=== PATIENT | female | born 1990 | race Caucasian/White ===

== ENCOUNTER 2021-12-21 19:30 | Emergency (ER) | payer OTHER ==
[2021-12-21] MEDS ORDERED: DIPHTH,PERTUSS(ACELL),TET 0.5 ML DISP.SYRIN IM ONE ×2 (19:39→19:50)
[2021-12-21 19:45] VITALS: BP 127/72; PULSE 80; TEMP 98.5; BMI 33.4
== END 2021-12-21 20:09 | disposition home or self-care (01) ==
LOC: FER 19:30
PROC: 0HQGXZZ Repair Left Hand Skin, External Approach (ICD-10-PCS; principal; 2021-12-21)
PROC: 3E0234Z Introduction of Serum, Toxoid and Vaccine into Muscle, Percutaneous Approach (ICD-10-PCS; 2021-12-21)
DX: S61.412A Laceration without foreign body of left hand, initial encounter (principal); W26.0XXA Contact with knife, initial encounter
CPT/HCPCS: 12001-25; 90471; 90715; 99282-25

== ENCOUNTER 2022-08-17 00:48 | Emergency (ER) | payer OTHER ==
[2022-08-17 00:55] VITALS: BP 110/64; PULSE 95; RESP 18; TEMP 98.9; BMI 35.4
[2022-08-17] MEDS ORDERED: MAG HYDROX/AL HYDROX/SIMETH -MYLANTA- ORAL SUSPENSION PO ONE (00:56)
[2022-08-17] MEDS ORDERED: FAMOTIDINE 20 MG/50 ML IVPB 20 MG in PREMIX 50 IVPB ONE (00:56)
[2022-08-17] MEDS ORDERED: SODIUM CHLORIDE 1,000 ML IV ONE (00:56)
[2022-08-17] MEDS ORDERED: ACETAMINOPHEN 1000 MG/100 ML BAG IVPB ONE (00:56)
[2022-08-17] MEDS ORDERED: ONDANSETRON 4 MG/2 ML VIAL IVPB ONE (01:15)
[2022-08-17] MEDS ORDERED: MAG HYDROX/AL HYDROX/SIMETH 30 ML UNIT-DOSE CUP ONE (01:16)
[2022-08-17] MEDS ORDERED: ONDANSETRON 4 MG/2 ML VIAL ONE (01:38)
[2022-08-17 02:32] LABS: BASO % 0.1 % (0-2.0); EOS % 0.2 % (0-4.5); HEMATOCRIT 43.4 % (32.4-45.2); HEMOGLOBIN 14.2 GM/dL (10.7-15.3); LYMPH % 3.1 % (8-40); MCH 26.8 pg (25.7-33.7); MCHC 32.8 g/dl (32.0-36.0); MEAN CELL VOLUME 81.7 fl (80-96); MEAN PLT VOLUME 10.5 fl (7.5-11.1); NEUT % 89.6 % (42.8-82.8); PLATELET COUNT 236 10^3/uL (134-434); RBC 5.32 M/mm3 (3.60-5.2); RDW 14.8 % (11.6-15.6); WHITE BLOOD COUNT 7.2 K/mm3 (4.0-10.0)
[2022-08-17 02:37] LABS: EPI CELLS >36 /uL (0-25.1); HCG,QUALITATIVE URINE Negative; HYALINE CASTS 3 /uL (0-3.1); PH,URINE 7.5 (5.0-8.0); URINE APPEARANCE CLEAR; URINE BACTERIA 2725 /uL (0-1359); URINE BILIRUBIN NEGATIVE (NEGATIVE); URINE COLOR YELLOW; URINE GLUCOSE (UA) NEGATIVE (NEGATIVE); URINE KETONE 1+ (NEGATIVE); URINE LEUK ESTERASE NEGATIVE (NEGATIVE); URINE NITRITE NEGATIVE (NEGATIVE); URINE PROTEIN 2+ (NEGATIVE); URINE RBC 11 /uL (0-23.9); URINE WBC 12 /uL (0-25.8)
[2022-08-17 03:10] LABS: CALCIUM 8.5 mg/dL (8.5-10.1)
[2022-08-17 03:11] LABS: ALBUMIN 3.8 g/dl (3.4-5.0); BLOOD UREA NITROGEN 11.8 mg/dL (7-18)
[2022-08-17 03:14] LABS: CREATININE 0.8 mg/dL (0.55-1.3)
[2022-08-17 03:15] LABS: BILIRUBIN,TOTAL 0.6 mg/dL (0.2-1); TOT PROT 6.9 g/dl (6.4-8.2)
== END 2022-08-17 03:26 | disposition home or self-care (01) ==
LOC: FER 00:48
PROC: 3E033GC Introduction of Other Therapeutic Substance into Peripheral Vein, Percutaneous Approach (ICD-10-PCS; principal; 2022-08-17)
DX: K52.9 Noninfective gastroenteritis and colitis, unspecified (principal)
CPT/HCPCS: 36415; 80053; 81003; 83690; 84703; 85025; 99284-25

== ENCOUNTER 2023-08-21 13:12 | Emergency (ER) | payer OTHER ==
[2023-08-21 13:16] VITALS: BP 113/76; PULSE 81; RESP 16; TEMP 98.6; BMI 37.5
== END 2023-08-21 13:58 | disposition home or self-care (01) ==
LOC: FER 13:12
DX: R05.9 Cough, unspecified (principal); R09.81 Nasal congestion; J06.9 Acute upper respiratory infection, unspecified; Z20.822 Contact with and (suspected) exposure to COVID-19
CPT/HCPCS: 0241U-QW; 99283-25

== ENCOUNTER 2023-10-12 13:20 | Emergency (ER) | payer OTHER ==
[2023-10-12 13:27] VITALS: BP 122/62; PULSE 84; RESP 18; TEMP 98; BMI 37.5
[2023-10-12] MEDS ORDERED: ACETAMINOPHEN 325 MG TABLET (FP) ONE (14:37)
[2023-10-12] MEDS ORDERED: METHOCARBAMOL 500 MG TABLET ONE (14:38)
[2023-10-12] MEDS ORDERED: IBUPROFEN 400 MG TABLET (FP) PO ONE (14:38)
[2023-10-12] MEDS: IBUPROFEN 400 MG TABLET (FP) PO ONE (14:46)
[2023-10-12] MEDS: METHOCARBAMOL 750 MG TABLET PO ONE (14:46)
[2023-10-12] MEDS: ACETAMINOPHEN 325 MG TABLET (FP) PO ONE (14:46)
== END 2023-10-12 17:06 | disposition home or self-care (01) ==
LOC: JERFT 13:20
DX: M54.50 Low back pain, unspecified (principal); R07.9 Chest pain, unspecified; M79.10 Myalgia, unspecified site; V43.52XA Car driver injured in collision with other type car in traffic accident, initial encounter; Y92.410 Unspecified street and highway as the place of occurrence of the external cause
CPT/HCPCS: 71045-TC-FY; 71111-TC-FY; 72100-TC-FY; 99284-25